=== PATIENT | male | born 1955 | race African-American/Black ===

== ENCOUNTER 2019-08-18 21:09 | Inpatient (IN) | payer SELFPAY ==
[2019-08-18] MEDS ORDERED: Nitroglycerin 2% Ointment 1 INCH/1 GM Packet ONE (21:31)
[2019-08-18] MEDS ORDERED: Aspirin Chewable 81 MG TAB ONE (21:31)
[2019-08-18 21:38] LABS: #Basophils 0.1 thou/uL (0.0-0.2); #Eosinphils 0.4 thou/uL (0.0-0.7); #Lymphocytes 3.5 thou/uL (1.20-3.40); #Monocytes 0.8 thou/uL (0.11-0.59); #Neutrophils 5.9 thou/uL (1.40-6.50); %Basophils 0.7 % (0.0-1.0); %Eosinophils 3.5 % (0.0-10.0); %Lymphocytes 32.9 % (21.0-51.0); %Monocytes 7.6 % (0.0-10.0); %Neutrophils 55.3 % (42.0-75.0); Hemoglobin 13.3 g/dL (14.0-18.0); Mean Corpuscular HGB CONC 32.1 g/dL (32.0-36.0); Mean Corpuscular Hemoglobin 29.9 pg (27.0-31.0); Mean Corpuscular Volume 93.2 fL (78.0-98.0); Mean Platelet Volume 7.1 fL (7.4-10.4); Platelet Count 246 thou/uL (130-400); RBC Distribution Width 12.4 % (11.5-14.5); Red Blood Cell (RBC) Count 4.46 mill/uL (4.70-6.10); White Blood Cell (WBC) Count 10.7 thou/uL (4.8-10.8)
[2019-08-18 22:00] LABS: ALT (SGPT) 8 U/L (8-55); AST (SGOT) 12 U/L (5-34); Albumin 4.3 g/dL (3.4-4.8); Alkaline Phosphatase 98 U/L (40-110); Anion Gap 13 mmol/L (10-20); BUN (Urea Nitrogen) 22 mg/dL (8.4-25.7); Bilirubin, Total 0.4 mg/dL (0.2-1.2); CK (CPK) 129 U/L (30-200); Calc. Creatinine Clearance 0 mL/min (70-130); Calcium 9.9 mg/dL (7.8-10.44); Carbon Dioxide 29 mmol/L (23-31); Chloride 101 mmol/L (98-107); Estimated GFR-MDRD 62; Globulin 2.8 g/dL (2.4-3.5); Glucose 117 mg/dL (80-115); Lipase 58 U/L (8-78); Potassium 3.9 mmol/L (3.5-5.1); Protein, Total 7.1 g/dL (5.8-8.1); Sodium 139 mmol/L (136-145)
[2019-08-18] MEDS ORDERED: Enoxaparin Sodium 80 MG/0.8 ML SYRINGE ONE (22:15)
[2019-08-18] MEDS ORDERED: Ondansetron PF 4 MG/2 ML Vial IVP PRN (22:19)
[2019-08-18] MEDS ORDERED: Ondansetron ODT 4 MG TAB SL PRN (22:19)
[2019-08-18 22:26] LABS: CKMB 1.8 ng/mL (0-6.6)
--- NOTE | 2019-08-18 22:36 | PDOC.FPRHP ---
- History of Present Illness Chief Complaint: Chest Pain History of Present Illness: Patient is a 64 y/o male who presents to the ED for evaluation of chest pain. Patient states that the pain is episodic and has been present for several weeks, feels like a "tightness", is substernal and w/o radiation, and associated with increased physical activity and relieved with rest. Associated symptoms nausea, SOB, diaphoresis, and a "tingling" sensation. Patient has not taken any medications to relieve this pain, and states that it is not relieved with position or worsened with inspiration or palpation. Patient states that he has not seen a doctor in many years and denies any underlying medical conditions. Patient denies palpitations or peripheral edema, worsening cough, recent illness or injury, fevers, chills, HAs, visual disturbances, syncopal episodes, rhinorrhea, epistaxis, sore throat, cough, V/D/ C, ABD pain, dysuria, hematuria or bloody stools. ED Course: s/p NS 500 ml, ASA 325 mg, Lovenox 1 mg/kg, Nitro Patch Trops: 0.561 EKG: Minimally prolonged ND and QT Interval w/o ST-Segment Changes - Allergies/Adverse Reactions Allergies Allergy/AdvReac Type Severity Reaction Status Date / Time No Known Allergies Allergy Verified 08/19/19 00:03 - Home Medications Medication Instructions Recorded Confirmed Type No Known 08/19/19 08/19/19 History - History PMHx: None PSHx: None FHx: Denies FHx of OR, CAD, OR or DM2 Social: Remote Tobacco and MJ Abuse. Denies EtOH, Tobacco and Drug Abuse at this time. Code: Full - Review of Systems General: reports: weight/appetite/sleep changes (weight loss), other (See HPI for comprehensive ROS). denies: fever/chills Eyes: denies: eye pain, vision changes ENT: reports: other (no sore throat or hearing changes). denies: rhinorrhea Respiratory: denies: cough, shortness of breath Cardiovascular: reports: chest pain. denies: palpitation, edema Gastrointestinal: reports: nausea, other (reflux). denies: vomiting, constipation, abdominal pain, GI bleeding Genitourinary: reports: other (no hematuria). denies: dysuria Musculoskeletal: denies: swelling Neurological: reports: numbness. denies: syncope - Vital signs BP: 173/87 HR: 86 RR: 14 Tmax: Pox: 100% on RA Wt: 70 kg - Physical Exam Constitutional: NAD, awake, alert and oriented, well developed HEENT: normocephalic and atraumatic, PERRLA, EOMI, conjunctiva clear, no scleral icterus, grossly normal vision, grossly normal hearing, MMM Neck: supple, FROM, trachea midline, no LAD, no JVD, no bruits Chest: no-tender to palpation, no lesions Heart: RRR, normal S1/S2, no murmurs/rubs/gallops, pulses present, no edema Lungs: CTAB, no respiratory distress, good air movement, no rales/rhonchi, no wheezing, no retractions Abdomen: soft, non-tender, bowel sounds present, no masses/distention, other ( Umbilical Hernia) Musculoskeletal: normal structure, normal tone, ROM grossly normal Neurological: no focal deficit Skin: no rash/lesions, capillary refill <2 seconds, no jaundice Heme/Lymphatic: no unusual bruising or bleeding, no purpura, no petechia, no LAD Psychiatric: normal mood and affect, good judgment and insight FMR H&P: Results - Labs Result Diagrams: 08/19/19 03:56 08/19/19 03:56 Lab results: WBC 10.7 thou/uL (4.8-10.8) 08/18/19 21:23 Hgb 13.3 g/dL (14.0-18.0) L 08/18/19 21:23 Hct 41.5 % (42.0-52.0) L 08/18/19 21:23 MCV 93.2 fL (78.0-98.0) 08/18/19 21:23 Plt Count 246 thou/uL (130-400) 08/18/19 21:23 Neutrophils % 55.3 % (42.0-75.0) 08/18/19 21:23 Sodium 139 mmol/L (136-145) 08/18/19 21:23 Potassium 3.9 mmol/L (3.5-5.1) 08/18/19 21:23 Chloride 101 mmol/L (98-107) 08/18/19 21:23 Carbon Dioxide 29 mmol/L (23-31) 08/18/19 21:23 BUN 22 mg/dL (8.4-25.7) 08/18/19 21:23 Creatinine 1.39 mg/dL (0.7-1.3) H 08/18/19 21:23 Glucose 117 mg/dL (80-115) H 08/18/19 21:23 Calcium 9.9 mg/dL (7.8-10.44) 08/18/19 21:23 Total Bilirubin 0.4 mg/dL (0.2-1.2) 08/18/19 21:23 AST 12 U/L (5-34) 08/18/19 21:23 ALT 8 U/L (8-55) 08/18/19 21:23 Alkaline Phosphatase 98 U/L (40-110) 08/18/19 21:23 Creatine Kinase 129 U/L (30-200) 08/18/19 21:23 CK-MB (CK-2) 1.8 ng/mL (0-6.6) 08/18/19 21:23 B-Natriuretic Peptide 38.9 pg/mL (0-100) 08/18/19 21:23 Serum Total Protein 7.1 g/dL (5.8-8.1) 08/18/19 21:23 Albumin 4.3 g/dL (3.4-4.8) 08/18/19 21:23 Lipase 58 U/L (8-78) 08/18/19 21:23 - EKG Interpretation EKG: See ED Course FMR H&P: A/P - Problem List (1) NSTEMI (non-ST elevated myocardial infarction) Current Visit: Yes Status: Acute Code(s): I21.4 - NON-ST ELEVATION (NSTEMI) MYOCARDIAL INFARCTION (2) Hypertensive urgency Current Visit: Yes Status: Acute Code(s): I16.0 - HYPERTENSIVE URGENCY (3) SHAWNA (acute kidney injury) Current Visit: Yes Status: Acute Code(s): N17.9 - ACUTE KIDNEY FAILURE, UNSPECIFIED - Plan Patient is a 64 y/o male who presents to the ED for evaluation of Chest Pain. 1. NSTEMI -Patient admits to Typical Chest Pain for approximately 1 month -s/p Therapeutic Lovenox, NS 500 ml Bolus, ASA, Nitro Patch in ED -Trop: 0.561 - will continue to trend -EKG: No evidence of ST-Segment changes - will plan for Q3H EKGs to document additional changes -Cardiology: Consulted, will evaluate in AM -Mg: Pending -Phos: Pending -TSH: Pending -HgA1c: Pending -Fasting Lipid Panel: Pending -Will continue Nitro Patch PRN and/or Morphine w/ follow-up EKG for recurrent CP 2. Hypertensive Urgency -SBP reported as > 180 mmHg by ED Attending Physician -BP: 173/87 during evaluation in ED -Hydralazine 10 mg PO PRN for BP > 160/100 mmHg -HTN is likely chronic w/ suspected CKD - will initiate Losartan 25 mg PO daily in AM 3. SHAWNA vs. CKD -Cr: 1.39 - increased from 0.96 in 2015 -Likely 2/2 to #2 -s/p NS 500 ml Bolus in ED -Will continue to monitor w/ AM labs and adjust medication regimen as needed -Avoid nephrotoxic drugs Code: Full Diet: NPO Activity: Ad marcos IVF: None VTE PPx: Therapeutic Lovenox 1 mg/kg Dispo: Patient is currently stable and admitted to the Telemetry Floor for further evaluation. Will consult Cardiology in the AM, recs appreciated. Will monitor serial Trops and EKGs closely and risk stratify as per above. Expected LOS > 48H. FMR H&P: Upper Level - Pertinent history PCP: TATY HPI: 64YOM with no reported PMH who presented to the ED for evaluation for chest pain. Reports he has had intermittent substernal chest "tightness" over the last 2 weeks. States it is substernal w/o radiation and pressure-like/ tightness in sensation. Reports exacerbation with exertion & relief with rest. Denies any associated SOB but endorses associated nausea & diaphoresis with the chest pain episodes. Tried ASA for relief at home during his last episode which was this AM. Denies any known FH of heart disease. Only reported risk factor for CAD is h/o smoking. ED course: Th Lovenox, ASA, nitropaste & 500mL NS See legal internship note for pertinent PMH. - Pertinent findings REVIEW OF SYSTEMS: Gen: no fever, chills, or sweats; + weight loss Neuro: + tingling with chest pain episodes, no weakness Eyes: no visual changes ENT: no sore throat, no runny nose Resp: no cough or SOB Card: + chest pain, no palpitations GI: no N/V/D, no abdominal pain : no dysuria, no hematuria MSK: no myalgias, no joint pain/stiffness Heme: no easy bruising/bleeding, no blood thinners Skin: no rash, no erythema Vitals: T: 98.2F RR: 16 BP: 173/87 P: 86 Sat: 100% on RA Wt: 72.57 kg PHYSICAL EXAMINATION: General: NAD, alert and oriented x3 HEENT: normal sclera, vision and hearing grossly normal; wears glasses Neck: Supple. Full ROM. Heart/Cardiovascular System: RRR, no rub, no murmur, no edema Lungs/Respiratory System: No increased work of breathing. Room air. CTAB. Abdomen/Gastro-Intestinal System: soft w/ no abdominal tenderness, normal bowel sounds; umbilical hernia w/o evidence of strangulation or incarceration noted. Extremities: Warm extremities. No cyanosis or edema. Neuro: No gross deficits appreciated. CN 2-12 grossly intact Psychiatry: Awake, Alert and cooperative with exam Skin: No lesions, rashes, or ulcers Musculoskeletal: Full ROM - Plan Date/Time: 08/18/192233 IStacey, have evaluated this patient and agree with findings/plan as outlined by legal internship resident. Pertinent changes/additions are listed here. A/P: #NSTEMI -Patient reports stable angina over last several weeks with a heart score of 7 based on history and objective data. EKG w/o notable ST elevation but troponin elevated at 0.56. Will continue to trend & get serial EKGs as well Q3H. Will consult cards tonight. Stable currently s/p Th Lovenox, ASA & nitropaste. -Will continue Th & closely monitor overnight on telemetry. #HTN uncontrolled -Suspect chronic HTN. Severe range on presentation but down to 160s systolic since nitropaste was placed. Will have PRN hydralazine available overnight & start on AYDIN antihypertensive in the AM. #SHAWNA vs. CKD -No baseline for comparison but Cr 1.39 & eGFR 62 on presentation. s/p 500mL in the ED. Will continue to trend & renally dose meds PRN. ABx: None Fluids: SL VTE PPX: Th Lovenox GI PPX: Famotidine Code status: FULL CODE Dispo: Admit to telemetry for close monitoring overnight with likely LHC with cards overnight vs. in the AM. Anticipated LOS >2 midnights pending clinical course. Addendum - Attending - Attending Attestation Date/Time: 08/19/192045 I personally evaluated the patient and discussed the management with Dr. Puckett last night. I agree with the History, Examination, Assessment and Plan documented above with any addition or exceptions noted below.
[2019-08-18] MEDS ORDERED: Nitroglycerin 2% Ointment 1 INCH/1 GM Packet TOP PRN (23:16)
[2019-08-18] MEDS ORDERED: Sodium Chloride 0.9% 1,000 ML IV ONE (23:23)
[2019-08-18] MEDS ORDERED: hydrALAZINE 10 MG TAB PO PRN (23:32)
[2019-08-19] MEDS ORDERED: Enoxaparin Sodium 80 MG/0.8 ML SYRINGE SC SCH ×3 (00:01→09:00)
[2019-08-19] MEDS ORDERED: Acetaminophen 325 MG TAB PO PRN (00:01)
[2019-08-19] MEDS ORDERED: Nitroglycerin 0.4 MG TAB (25 Tab Bottle) PO PRN (00:01)
[2019-08-19] MEDS ORDERED: Ondansetron ODT 4 MG TAB PO PRN (00:01)
[2019-08-19 00:12] VITALS: BMI 20.9
[2019-08-19 00:44] LABS: Hemoglobin A1c 5.6 % (4.0-6.0)
[2019-08-19] MEDS ORDERED: Sodium Chloride 0.9% 250 ML 250 ML IVPB SCH (00:45)
[2019-08-19 00:56] LABS: Phosphorus 2.9 mg/dL (2.3-4.7)
[2019-08-19] MEDS ORDERED: Sodium Chloride 0.9% 1,000 ML IV ONE (01:00)
[2019-08-19 01:15] LABS: Critical Call Chem Troponin I RESULT DECREASING; Troponin I 0.514 ng/mL (< 0.028)
[2019-08-19 04:38] LABS: #Basophils 0.1 thou/uL (0.0-0.2); #Eosinphils 0.3 thou/uL (0.0-0.7); #Monocytes 0.6 thou/uL (0.11-0.59); #Neutrophils 4.4 thou/uL (1.40-6.50); %Basophils 0.9 % (0.0-1.0); %Eosinophils 3.1 % (0.0-10.0); %Lymphocytes 35.6 % (21.0-51.0); %Monocytes 7.1 % (0.0-10.0); %Neutrophils 53.2 % (42.0-75.0); Hemoglobin 11.9 g/dL (14.0-18.0); Mean Corpuscular HGB CONC 32.3 g/dL (32.0-36.0); Mean Corpuscular Hemoglobin 30.4 pg (27.0-31.0); Mean Corpuscular Volume 94.1 fL (78.0-98.0); Mean Platelet Volume 7.8 fL (7.4-10.4); Platelet Count 205 thou/uL (130-400); RBC Distribution Width 12.4 % (11.5-14.5); Red Blood Cell (RBC) Count 3.93 mill/uL (4.70-6.10); White Blood Cell (WBC) Count 8.4 thou/uL (4.8-10.8)
[2019-08-19 05:03] LABS: ALT (SGPT) 7 U/L (8-55); AST (SGOT) 14 U/L (5-34); Albumin 3.3 g/dL (3.4-4.8); Alkaline Phosphatase 71 U/L (40-110); Anion Gap 12 mmol/L (10-20); BUN (Urea Nitrogen) 19 mg/dL (8.4-25.7); Bilirubin, Total 0.5 mg/dL (0.2-1.2); Calc. Creatinine Clearance 71 mL/min (70-130); Calcium 8.6 mg/dL (7.8-10.44); Carbon Dioxide 22 mmol/L (23-31); Cardiac Risk 4.3 (Less than 4.5); Chloride 107 mmol/L (98-107); Cholesterol 142 mg/dl (< 200 Desired); Estimated GFR-MDRD 87; Globulin 2.5 g/dL (2.4-3.5); Glucose 94 mg/dL (80-115); HDL Cholesterol 33 mg/dL (>60 Neg Risk); LDL Cholesterol, Calculated 97 mg/dL; Potassium 4.1 mmol/L (3.5-5.1); Protein, Total 5.8 g/dL (5.8-8.1); Sodium 137 mmol/L (136-145); Triglycerides 58 mg/dL (Less than 150)
[2019-08-19 05:08] LABS: Critical Call Chem Troponin I RESULT DECREASING; Troponin I 0.458 ng/mL (< 0.028)
--- NOTE | 2019-08-19 06:59 | RAD ---
PORTABLE CHEST: HISTORY: Chest pain. FINDINGS: The lung ontiveros are clear. Heart and mediastinum appear normal. Vasculature normal. IMPRESSION: Negative chest. POS: AGW
--- NOTE | 2019-08-19 07:13 | PDOC.FM ---
- Subjective Subjective: Pt is a 64 yo male here for NSTEMI. He denies chest pain with nitro patch. He has never had sob, le edema, syncope, palpitations. He does not see a physician regularly. - Objective Vital Signs & Weight: Vital Signs (12 hours) Temp Pulse Resp BP BP Pulse Ox 08/19/19 03:28 98.9 F 77 18 131/79 98 08/19/19 01:17 98 08/19/19 00:01 98 08/18/19 23:10 98.7 F 87 17 179/84 H 97 Weight Weight 69.853 kg I&O: 08/18/19 08/19/19 08/20/19 06:59 06:59 06:59 Intake Total 1000 Output Total 200 Balance 800 Result Diagrams: 08/19/19 03:56 08/19/19 03:56 EKG Reviewed by me: Yes (60's-70's w/ PAC's) Phys Exam - Physical Examination Constitutional: NAD HEENT: PERRLA, moist MMs Neck: no JVD, full ROM Respiratory: no wheezing, clear to auscultation bilateral Cardiovascular: RRR, no significant murmur Gastrointestinal: soft, non-tender Musculoskeletal: no edema, pulses present Neurological: non-focal, moves all 4 limbs Psychiatric: normal affect, A&O x 3 Skin: no rash, cap refill <2 seconds Dx/Plan (1) SHAWNA (acute kidney injury) Code(s): N17.9 - ACUTE KIDNEY FAILURE, UNSPECIFIED Status: Acute (2) Hypertensive urgency Code(s): I16.0 - HYPERTENSIVE URGENCY Status: Acute (3) NSTEMI (non-ST elevated myocardial infarction) Code(s): I21.4 - NON-ST ELEVATION (NSTEMI) MYOCARDIAL INFARCTION Status: Acute (4) CAD (coronary artery disease) Code(s): I25.10 - ATHSCL HEART DISEASE OF [place] CORONARY ARTERY W/O ANG PCTRS Status: Acute - Plan Plan: Pt is here for an NSTEMI: # NSTEMI - Dr. Alonso consulted, appreciate rec's. Likely cath today. Pt is NPO - ASA daily - Start atorvastatin - BP controlled, continue to monitor. Losartan initiated - Currently on therapeutic lovenox - Trop downtrended but elevated # CAD - as above - optimize statin therapy, BP meds. A1c WNL. # HTN Urgency - continue to monitor, titrate meds as needed # SHAWNA - resolved with fluids Fluids: none Diet: NPO Dispo: cardiac cath today Addendum - Attending - Attending Attestation Date/Time: 08/19/19 1141 I personally evaluated the patient and discussed the management with Dr. Gallego. I agree with the History, Examination, Assessment and Plan documented above with any addition or exceptions noted below. Patient here for NSTEMI. Cardiology on board and on anticoagulation at this time. Plan for cath later today.
[2019-08-19] MEDS: Famotidine 20 MG TAB PO SCH ×2 (08:16→20:09)
[2019-08-19] MEDS ORDERED: Aspirin 325 mg Enteric Coated Tablet PO SCH ×2 (09:00)
[2019-08-19] MEDS ORDERED: Losartan 25 MG TAB PO SCH (09:00)
[2019-08-19] MEDS ORDERED: Iopamidol 370 76% 100 ML VIAL ONE (09:37)
[2019-08-19] MEDS ORDERED: Heparin 10,000 UNITS/1 ML VIAL ONE (13:07)
[2019-08-19] MEDS ORDERED: Verapamil 5 MG/2 ML VIAL ONE (13:07)
[2019-08-19] MEDS ORDERED: Nitroglycerin 100MG/250ML BOT 250 ML ONE (13:08)
[2019-08-19] MEDS ORDERED: Midazolam HCl 2 mg/2 ml Vial ONE (14:15)
[2019-08-19] MEDS ORDERED: Fentanyl 100 MCG/2 ML VIAL ONE (14:16)
--- NOTE | 2019-08-19 14:33 | EKG ---
Test Reason : Blood Pressure : / mmHG Vent. Rate : 097 BPM Atrial Rate : 097 BPM P-R Int : 206 ms QRS Dur : 098 ms QT Int : 368 ms P-R-T Axes : 065 072 098 degrees QTc Int : 467 ms Sinus rhythm with occasional Premature ventricular complexes Prolonged QT Abnormal ECG Confirmed by ROBERTA FELICIANO, JODIE ([id number]), map editor JORGE ALBERTO ROUSSEAU ([id number]) on 08/19/2019 2:33:16 PM Referred By: Confirmed By:JODIE GRANADOS MD
[2019-08-19] MEDS ORDERED: Acetaminophen/Codeine 30-300mg Tablet PO PRN (14:41)
[2019-08-19] MEDS ORDERED: Sodium Chloride 0.9% 200 ML IV PRN (14:41)
[2019-08-19] MEDS ORDERED: Sodium Chloride 0.9% 500 ML IV SCH (14:45)
--- NOTE | 2019-08-19 20:19 | CON ---
DATE OF CONSULTATION: 08/19/2019 REASON FOR CONSULTATION: Non-STEMI. HISTORY OF PRESENT ILLNESS: Mr. Marie is a pleasant 64-year-old gentleman who comes to the hospital for chest pain. He has been having chest pain for the last 3 weeks. He decided to come in as the pain continued with exertion and better with rest. On initial evaluation, he was found to have mildly elevated troponins. Cardiology is being consulted for this. On my evaluation, Mr. Marie is pain free. However, if he stands up and starts walking around, he starts getting chest pain. PAST MEDICAL HISTORY: None. PAST SURGICAL HISTORY: None. FAMILY HISTORY: Noncontributory. SOCIAL HISTORY: Remote tobacco use, quit over 20 years ago. No alcohol or drugs. REVIEW OF SYSTEMS: A 12-point review of systems was done and was all negative unless stated in History of Present Illness. OUTPATIENT MEDICATIONS: None. ALLERGIES: NO KNOWN DRUG ALLERGIES. PHYSICAL EXAMINATION: VITAL SIGNS: Temperature 97.9, pulse 73, respiratory rate 16, sat 98% on room air, and blood pressure 131/74. GENERAL: Awake, alert, oriented x3, in no distress. HEENT: Normocephalic and atraumatic. NECK: Supple. LUNGS: Clear. CARDIOVASCULAR: S1 and S2. No S3 or S4. No murmurs. ABDOMEN: Soft. Positive bowel sounds. EXTREMITIES: No edema. SKIN: Warm and dry. LABORATORY DATA: Laboratory work was reviewed. CBC with a white count of 10, hemoglobin 13, hematocrit 41, and platelet count of 246. Chemistry was unremarkable. Normal BUN and creatinine. Troponin was 0.056, then 0.51 and 0.45. LDL of 97. ASSESSMENT: Ggt-[id number] myocardial infarction. PLAN: Proceed with heart catheterization. We spoke with him at length about the risks and benefits of the procedure. Risks included, but not limited to stroke, IL, , bleeding, need for blood transfusion, limb loss, organ loss. He understands, verbalized understanding of this and agrees to proceed. Further recommendations per results of coronary angiogram. Right radial access with drug-eluting stents if needed. Job ID: [id number]
[2019-08-19] MEDS ORDERED: Atorvastatin Calcium 40 MG TAB PO SCH (21:00)
--- NOTE | 2019-08-20 06:58 | CT ---
CTA CHEST WITH IV CONTRAST AND PE PROTOCOL AND 3D REFORMATTED IMAGING: INDICATIONS: History of [id number] TN with negative cath and negative echo with chest pain. COMPARISON: None. FINDINGS: There is a 5.5 mm subpleural pulmonary nodule within the right middle lobe. No additional pulmonary n odule is evident. No pleural effusion is demonstrated. No consolidation is noted. No central or segmental pulmonary embolus is evident. There are mild vascular calcifications involvin g the thoracic aorta. There is no lymphadenopathy seen within the mediastinum or axillary regions. The visualized upper abdomen demonstrates a small hiatal hernia. There is a large, 2.1 cm staghorn ca lculus within the left renal pelvis with moderate left caliectasis. There is a 9.5 mm stone in the in ferior pole of the left kidney. There is a 3 mm stone and 2 mm stone involving the inferior pole of t he left kidney. The visualized adrenal glands are normal appearing. There is a chronic wedge compress ion abnormality of L1. There is diffuse osteopenia. There is scattered degenerative change. IMPRESSION: 1. No central or segmental pulmonary embolus. 2. Large left renal pelvis staghorn calculus with moderate left caliectasis. Additional left nephroli thiasis is seen involving the inferior pole of the left kidney. A renal ultrasound is recommended for further characterization of the extent of the left renal collecting system dilatation. 3. A 5 mm right middle lobe pulmonary nodule. Follow-up CT examination in six months is recommended t o document stability. POS: BH
--- NOTE | 2019-08-20 07:17 | PDOC.FM ---
- Subjective Subjective: Pt is doing well today. He has mild, gerd-like chest discomfort but is not painful. He denies drugs other than marijuana use. - Objective Vital Signs & Weight: Vital Signs (12 hours) Temp Pulse Resp BP Pulse Ox 08/20/19 03:47 98.6 F 80 18 156/82 H 98 08/20/19 00:09 97 08/19/19 20:00 98.1 F 84 16 152/77 H 97 Weight Weight 69.853 kg I&O: 08/19/19 08/20/19 08/21/19 06:59 06:59 06:59 Intake Total 1000 1220 Output Total 200 780 Balance 800 440 Result Diagrams: 08/19/19 03:56 08/20/19 07:19 Phys Exam - Physical Examination Constitutional: NAD HEENT: PERRLA, moist MMs Neck: no nodes, no JVD, full ROM Respiratory: no wheezing, clear to auscultation bilateral Cardiovascular: RRR, no significant murmur Gastrointestinal: soft, non-tender Musculoskeletal: no edema, pulses present Neurological: non-focal, normal sensation Psychiatric: normal affect, A&O x 3 Dx/Plan (1) SHAWNA (acute kidney injury) Code(s): N17.9 - ACUTE KIDNEY FAILURE, UNSPECIFIED Status: Acute (2) Hypertensive urgency Code(s): I16.0 - HYPERTENSIVE URGENCY Status: Acute (3) NSTEMI (non-ST elevated myocardial infarction) Code(s): I21.4 - NON-ST ELEVATION (NSTEMI) MYOCARDIAL INFARCTION Status: Acute (4) CAD (coronary artery disease) Code(s): I25.10 - ATHSCL HEART DISEASE OF [place] CORONARY ARTERY W/O ANG PCTRS Status: Acute - Plan Plan: Pt is here for a chest pain/elevated troponin: # Elevated Trop - Not sure etiology. Negative cath, CTA for PE; normal echo. Consider prinzmetal angina - if so could start a CCB for BP control vs losartan. - Drug screen positive for marijuana. # 5 mm R Middle Lobe Pulmonary Nodule - follow up in [address] # Chest Pain - mild - Dr. Alonso consulted, appreciate rec's. Cath negative - ASA daily - Continue atorvastatin, ASCVD 21% - BP elevated, increase losartan # HTN Urgency - continue to monitor, titrate meds as needed - increase losartan # Nephrolithiasis - recommend U/S for full visualization, can be done outpt with normal kidney function at this time # SHAWNA - resolved with fluids Fluids: none Diet: HH Dispo: pending workup for elevated trop Addendum - Attending - Attending Attestation Date/Time: 08/20/19 1101 I personally evaluated the patient and discussed the management with Dr. Marie. I agree with the History, Examination, Assessment and Plan documented above with any addition or exceptions noted below. Patient doing well. No complaints. He has had extensive workup including TTE, Cath, and CTA chest that have been negative. Awaiting further recs from cardiology but hopeful discharge later today.
[2019-08-20 08:06] LABS: Anion Gap 12 mmol/L (10-20); BUN (Urea Nitrogen) 12 mg/dL (8.4-25.7); Calc. Creatinine Clearance 65 mL/min (70-130); Calcium 9.2 mg/dL (7.8-10.44); Carbon Dioxide 26 mmol/L (23-31); Chloride 103 mmol/L (98-107); Estimated GFR-MDRD 79; Glucose 95 mg/dL (80-115); Potassium 4.1 mmol/L (3.5-5.1); Sodium 137 mmol/L (136-145)
[2019-08-20 08:20] LABS: Amphetamine Not Detected (NotDetected); Barbiturates Screen Not Detected (NotDetected); Benzodiazepine Screen Not Detected (NotDetected); Cocaine Metabolite Screen Not Detected (NotDetected); Medtox Control Line Valid? VALID (VALID); Medtox Reader # READER 1; Methadone Not Detected (NotDetected); Methamphetamine Not Detected (NotDetected); Opiate Screen Not Detected (NotDetected); Oxycodone Screen Not Detected (NotDetected); Phencyclidine (PCP) Not Detected (NotDetected); THC/Cannabinoid Screen Detected (NotDetected); Tricyclic Screen Not Detected (NotDetected)
[2019-08-20] MEDS: Famotidine 20 MG TAB PO SCH (08:55)
[2019-08-20] MEDS ORDERED: Losartan 25 MG TAB PO SCH (09:00)
[2019-08-20] MEDS ORDERED: Aspirin 81 mg Enteric Coated Tablet PO SCH (09:00)
[2019-08-20] MEDS ORDERED: Iopamidol 370 76% 100 ML VIAL ONE (10:07)
[2019-08-20 11:40] VITALS: BP 134/85; TEMP 98.4
--- NOTE | 2019-08-23 05:25 | PQF ---
Andrey Marie JASON MD [id number] CLINICAL DOCUMENTATION CLARIFICATION FORM: POST DISCHARGE Addendum to original discharge summary date: ____ Late entry note date: __ DATE: 08/23/2019 ATTN: Seth Castañeda Please exercise your independent, professional judgment in responding to the clarification form. Clinical indicators are provided on the bottom of this form for your review Please check appropriate box(s): [ ] Acute Coronary Syndrome (ACS) without Acute [place] meaning Unstable Angina [X ] NSTEMI ([place] type I) [ ] NSTEMI Type II due to, please specigy etiology: [ ] NSTEMI due to Demand Ischemia (AMI Type II) [ ] Demand Ischemia without [place] [ ] STEMI (please also specify site and arterysee below) If STEMI, SITE:[ ] Anterior [ ] Apical [ ] Lateral [ ] Inferior [ ] Posterior [ ] Q Wave [ ] Septal [ ] Unable to Determine [ ] Chest pain, please specify etiology: [ ] Other diagnosis [ ] Unable to determine CLINICAL INDICATORS - SIGNS / SYMPTOMS / LABS Laboratory 08/17 Troponin I 0.561; 0.514, CK-MB 1.8, BNP 38.9 Vital signs 08/17 BP 180/95, pulse 101, Resp 16, Temp 98.2 EKG 08/17 Impression: No evidence of St-segment changes H&P p1 08/17 Dr Puckett Pt states that the pain is episodic and has been present for several weeks, feels like a tightness and is substernal and w/o radiation H&P p1 08/17 Dr Pucktet Associated symptoms nausea, SOB, diaphoresis and tingling sensation. H&P p4 08/17 Dr Puckett NSTEMI, pt admits to typical chest pain for approximately 1 month Hospitalist PN p1 5/2 He has mild, GERD like chest discomfort but is not painful Hospitalist PN p2 08/19 Elevated trop, consider Prinzmetal angina RISKS: H&P p1 08/17 64 year-old Male H&P p1 08/17 H&P p1 08/17 Remote hx of Tobacco and MJ abuse H&P p4 08/17 HTN Urgency H&P p4 08/17 SHAWNA, CKD Hospitalist PN p2 08/19 CAD Hospitalist PN p2 08/19 R middle lobe pulmonary nodule TREATMENTS: JUN 21 Aspirin 81mg oral JUN 22 Ntro-Bid 2% ointment JUN 22 IV Nitroglycerin 100mg/250ml JUN 22 Isoptin 5mg Oral JUN 22 IVF Ns 1L EKG 08/17 Left cardiac catheterization 08/18 Dr Alonso Cardiology consult 08/18 Navjot Antonio (This form is maintained as a part of the permanent medical record) 2014 [employer], [employer]. All Rights Reserved [email or web address]
--- NOTE | 2019-08-24 09:25 | EKG ---
Test Reason : Blood Pressure : / mmHG Vent. Rate : 066 BPM Atrial Rate : 066 BPM P-R Int : 224 ms QRS Dur : 096 ms QT Int : 420 ms P-R-T Axes : 062 060 105 degrees QTc Int : 440 ms Sinus rhythm with 1st degree A-V block with Premature atrial complexes Abnormal ECG When compared with ECG of 18-AUG-2019 21:23, (Unconfirmed) Premature ventricular complexes are no longer Present Premature atrial complexes are now Present Confirmed by DR. Desire RODAS ([id number]) on 08/24/2019 9:25:34 AM Referred By: CRISTÓBAL *R Confirmed By:DR. Desire RODAS
--- NOTE | 2019-08-24 09:25 | EKG ---
Test Reason : TROPONIN Blood Pressure : / mmHG Vent. Rate : 072 BPM Atrial Rate : 072 BPM P-R Int : 222 ms QRS Dur : 096 ms QT Int : 408 ms P-R-T Axes : 050 064 090 degrees QTc Int : 446 ms Sinus rhythm with 1st degree A-V block with Premature atrial complexes Abnormal ECG When compared with ECG of 18-AUG-2019 21:23, (Unconfirmed) Premature ventricular complexes are no longer Present Premature atrial complexes are now Present Confirmed by DR. Desire RODAS ([id number]) on 08/24/2019 9:25:26 AM Referred By: Katina FERNANDEZ Confirmed By:DR. Desire RODAS
--- NOTE | 2019-08-26 05:24 | DIS ---
DATE OF ADMISSION: 08/18/2019 DATE OF DISCHARGE: 08/20/2019 DISCHARGE ATTENDING: Seth Ochoa MD ADMITTING ATTENDING: Son Mclaughlin MD CONSULTS: Cardiology, Dr. Navjot Alonso. PROCEDURES: 1. Chest x-ray on 04/18/2019, revealed no abnormalities. 2. Cardiac catheterization on 08/19/2019, revealed normal left ventricular function. Normal left ventricular end-diastolic pressure. No left ventricular to aortic gradient. Mild disease 20% to 30%. Noncardiac cause of chest pain. 3. Echocardiogram on 08/19/2019, revealed ejection fraction visually estimated at 60% to 65%. Grade 1 of three diastolic dysfunction. Mild mitral regurgitation is present. Mild tricuspid regurgitation. 4. CTA chest thorax on 08/20/2019, revealed no central or segmental pulmonary embolus. Large left renal pelvis staghorn calculus with moderate left caliectasis. Additional left nephrolithiasis is involved in the pole of the left kidney. Renal ultrasound is recommended for further characterization of the extent of the renal collecting system dilation. A 5 mm right middle lobe pulmonary nodule. Followup CT exam in 6 months is recommended to document stability. DISCHARGE MEDICATIONS: 1. Amlodipine 5 mg p.o. daily. 2. Atorvastatin 40 mg p.o. at bedtime. 3. Losartan 25 mg p.o. daily. DISCONTINUED MEDICATIONS: None. HPI/HOSPITAL COURSE: Andrey Marie is a 64-year-old male, who had no previous primary care followup and had no current risk factors for heart disease. This is likely though due to him not having follow up with the primary care provider. He came in for evaluation of chest pain and elevated blood pressures. It was initially thought that the patient was having an NSTEMI due to elevated troponins as high as 0.561. They then downtrended by the third troponin. There was no evidence of ST-segment changes on the EKG, but we did do serial EKGs as well. Electrolytes were within normal limits. Due to the suspected hypertensive emergency, NSTEMI, elevated troponins, the patient was taken for cardiac cath, which revealed only one segment of 20% stenosis as noted above. Dr. Alonso did not believe that this was the etiology of his elevated troponins. Dr. Alonso also wanted a CTA of the chest, which did not have any significant findings including a pulmonary embolism. He also had an echocardiogram performed, which just showed diastolic dysfunction and no other etiology of his elevated troponins. Possibly, this patient was suffering from Prinzmetal angina. Due to this, we did start him on a calcium channel cathy. We have optimized his medications to treat hypertension, hyperlipidemia. He did have an elevated ASCVD risk score of about 21%. Plan was to follow up with [facility] and continue to risk stratify. His A1c was within normal limits. I would add aspirin on his followup visit to the clinic. Otherwise, discussed with the patient returning to the emergency department, if he continued to have chest pain. A beta-cathy was not initiated on this patient nor they deferred to the [facility], because the patient did not suffer from an NSTEMI related to coronary artery disease. DISPOSITION: Stable. DISCHARGE INSTRUCTIONS: Location. 1. [facility]. 2. Diet: Heart healthy. 3. Activity: Ad-marcos. 4. Followup: Follow up with Dr. Gallego at [facility] in 7 days. Job ID: [id number]
== END 2019-08-20 13:50 | disposition home or self-care (01) | DRG 287 ==
LOC: ERS 21:09 → 2NO 22:30
PROVIDERS: ADMIT Family Medicine; ATTEND Family Medicine
PROC: 4A023N7 Measurement of Cardiac Sampling and Pressure, Left Heart, Percutaneous Approach (ICD-10-PCS; principal; 2019-08-19)
PROC: B2111ZZ Fluoroscopy of Multiple Coronary Arteries using Low Osmolar Contrast (ICD-10-PCS; 2019-08-19)
PROC: B2151ZZ Fluoroscopy of Left Heart using Low Osmolar Contrast (ICD-10-PCS; 2019-08-19)
DX: I25.111 Atherosclerotic heart disease of native coronary artery with angina pectoris with documented spasm (principal); N17.9 Acute kidney failure, unspecified; I16.1 Hypertensive emergency; I16.0 Hypertensive urgency; I10 Essential (primary) hypertension; R91.1 Solitary pulmonary nodule; N20.0 Calculus of kidney; R79.89 Other specified abnormal findings of blood chemistry; Z87.891 Personal history of nicotine dependence
CPT/HCPCS: 36415; 71045; 71275; 80048; 80053; 80061; 80306; 82550; 82553; 83036; 83690; 83735; 83880; 84100; 84443; 84484; 85025; 93005; 93010; 93306; 93458; 94760; 96372; 99152; J1644; J1650; J2250; J3010; Q9967

== ENCOUNTER 2020-09-05 07:05 | Emergency (ER) | payer MEDICARE, SELFPAY ==
[2020-09-05 07:49] LABS: #Basophils 0.1 thou/uL (0.0-0.2); #Eosinphils 0.3 thou/uL (0.0-0.7); #Lymphocytes 2.6 thou/uL (1.20-3.40); #Monocytes 0.6 thou/uL (0.11-0.59); #Neutrophils 4.7 thou/uL (1.40-6.50); %Basophils 0.6 % (0.0-1.0); %Eosinophils 3.2 % (0.0-10.0); %Monocytes 7.2 % (0.0-10.0); Hemoglobin 12.9 g/dL (14.0-18.0); Mean Corpuscular HGB CONC 31.6 g/dL (32.0-36.0); Mean Corpuscular Hemoglobin 28.5 pg (27.0-31.0); Mean Corpuscular Volume 90.2 fL (78.0-98.0); Mean Platelet Volume 7.1 fL (7.4-10.4); Platelet Count 228 thou/uL (130-400); RBC Distribution Width 12.5 % (11.5-14.5); Red Blood Cell (RBC) Count 4.53 mill/uL (4.70-6.10); White Blood Cell (WBC) Count 8.3 thou/uL (4.8-10.8)
[2020-09-05] MEDS ORDERED: Aspirin Chewable 81 MG TAB ONE ×2 (08:12→08:13)
[2020-09-05 08:20] LABS: ALT (SGPT) Less than 7 U/L (8-55); AST (SGOT) 11 U/L (5-34); Albumin 4.1 g/dL (3.4-4.8); Alkaline Phosphatase 98 U/L (40-110); Anion Gap 14 mmol/L (10-20); Bilirubin, Total 0.6 mg/dL (0.2-1.2); CK (CPK) 138 U/L (30-200); Calc. Creatinine Clearance 0 mL/min (70-130); Calcium 9.8 mg/dL (7.8-10.44); Carbon Dioxide 26 mmol/L (23-31); Chloride 103 mmol/L (98-107); Globulin 3.3 g/dL (2.4-3.5); Glucose 113 mg/dL (80-115); Potassium 3.9 mmol/L (3.5-5.1); Protein, Total 7.4 g/dL (5.8-8.1); Sodium 139 mmol/L (136-145)
[2020-09-05] MEDS ORDERED: Aspirin 325 MG TAB ONE (09:26)
[2020-09-05 09:40] LABS: BUN (Urea Nitrogen) 25 mg/dL (8.4-25.7)
== END 2020-09-05 11:08 | disposition home or self-care (01) ==
LOC: ERS 07:05
DX: R07.89 Other chest pain (principal); K21.9 Gastro-esophageal reflux disease without esophagitis; Z79.899 Other long term (current) drug therapy
CPT/HCPCS: 36415; 71045; 80053; 82550; 84484; 85025; 93005

== ENCOUNTER 2024-06-13 17:57 | Emergency (ER) | payer MEDICARE, SELFPAY ==
[2024-06-13 19:20] LABS: #Basophils 0.04 10x3/uL (0.0-0.2); %Basophils 0.4 % (0.0-1.0); %Eosinophils 1.6 % (0.0-10.0); %Lymphocytes 23.4 % (21.0-51.0); %Monocytes 8.8 % (0.0-10.0); %Neutrophils 65.5 % (42.0-75.0); Hematocrit 43.5 % (42.0-52.0); Hemoglobin 14.3 g/dL (14.0-18.0); Mean Corpuscular HGB CONC 32.9 g/dL (32.0-36.0); Mean Corpuscular Hemoglobin 28.8 pg (27.0-31.0); Mean Corpuscular Volume 87.5 fL (78.0-98.0); Mean Platelet Volume 9.7 fL (7.4-10.4); Platelet Count 170 10x3/uL (130-400); RBC Distribution Width 13.9 % (11.5-14.5); Red Blood Cell (RBC) Count 4.97 mill/uL (4.70-6.10)
[2024-06-13 19:40] LABS: ALT (SGPT) Less than 7 U/L (Less than 45); AST (SGOT) 13 U/L (11-34); Alkaline Phosphatase 84 U/L (40-110); Anion Gap 15 mmol/L (10-20); BUN (Urea Nitrogen) 22 mg/dL (8.4-25.7); Bilirubin, Total 0.6 mg/dL (0.3-1.2); Calc. Creatinine Clearance 0 mL/min (70-130); Calcium 9.7 mg/dL (7.8-10.44); Carbon Dioxide 22 mmol/L (23-31); Chloride 106 mmol/L (98-107); Estimated GFR 47; Globulin 3.9 g/dL (2.4-3.5); Glucose 101 mg/dL (80-115); Protein, Total 7.9 g/dL (5.8-8.1); Sodium 139 mmol/L (136-145)
[2024-06-13 19:43] LABS: Troponin I Less than 0.010 ng/mL (< 0.028)
== END 2024-06-13 20:15 | disposition home or self-care (01) ==
LOC: ERS 17:57
DX: R00.2 Palpitations (principal)
CPT/HCPCS: 36415; 80053; 84443; 84484; 85025; 93005; 99284